=== PATIENT | male | born 1935 | race Caucasian/White ===

== ENCOUNTER → 2017-12-04 | Outpatient (CLI) | payer MEDICARE ==
[~2017-12-04] MED LIST: ACET-1966 PO; ACET-2146 PO; AMLO-96 PO; BENECAR; BUPR-124 PO; CIP500 PO; DIA2 PO; DICL100G39 TOP; DULO20CA3 PO; DULO30CA35 PO; FINA5TAB67 PO; IBUP200C74 PO; IRBE1TAB PO; IRBE300T6 PO; MEC25 PO; METO25TA23 PO; OND4 PO; SAW160CA24 PO; SAW160CA26 PO; TAMS0.4C70 PO; VITAMINS; [UNRECOGNIZED DRUG - OTHER]
--- NOTE | 2017-12-04 14:12 | EKG ---
[facility] PATIENT NAME: ALFONZO HUANG : [id number] MR: [id number] V: [id number] EXAM DATE: ORDERING PHYSICIAN: LIS MENDOZA TECHNOLOGIST: NEGRO Test Reason : TACHYCARDIA Blood Pressure : / mmHG Vent. Rate : 099 BPM Atrial Rate : 099 BPM P-R Int : 126 ms QRS Dur : 082 ms QT Int : 322 ms P-R-T Axes : 055 -06 008 degrees QTc Int : 413 ms Sinus rhythm with occasional premature ventricular complexes Otherwise normal ECG No previous ECGs available Referred By: KELLY Confirmed By:
== END ==
LOC: RESP 09:13
PROVIDERS: ATTEND Family Medicine
DX: Z02.9 Encounter for administrative examinations, unspecified (principal)

== ENCOUNTER → 2017-12-28 | Outpatient (CLI) | payer MEDICARE | LOC: RESP 20:44 | PROVIDERS: ATTEND Family Medicine | DX: G47.33 Obstructive sleep apnea (adult) (pediatric) (principal); G47.61 Periodic limb movement disorder; G47.36 Sleep related hypoventilation in conditions classified elsewhere; E66.3 Overweight ==

== ENCOUNTER → 2018-01-25 | Outpatient (CLI) | payer MEDICARE | LOC: RESP 20:40 | PROVIDERS: ATTEND Family Medicine | DX: G47.33 Obstructive sleep apnea (adult) (pediatric) (principal); G47.61 Periodic limb movement disorder; G47.36 Sleep related hypoventilation in conditions classified elsewhere; E66.9 Obesity, unspecified ==

== ENCOUNTER → 2018-02-28 | Outpatient (CLI) | payer MEDICARE ==
[~2018-02-28] MED LIST changes: +FAMO-67 PO
[2018-02-28 11:12] LABS: PLATELET COUNT, AUTOMATED 210 K/uL (150-450)
== END ==
LOC: LAB 10:39
PROVIDERS: ATTEND Family Medicine
DX: I10 Essential (primary) hypertension (principal); E16.2 Hypoglycemia, unspecified
CPT/HCPCS: 36415; 82040; 82247; 82310; 82374; 82435; 82565; 82947; 83036; 84075; 84132; 84155; 84295; 84450; 84460; 84520; 85025

== ENCOUNTER 2018-04-11 09:45 | Outpatient (RCR) | payer MEDICARE ==
--- NOTE | 2018-03-04 09:51 | PT INITIAL EVALUATION ---
MEDICAL DIAGNOSIS: arthritis of knee, falls frequently TREATMENT DIAGNOSIS: same DATE OF ONSET: 03/03/15 SUBJECTIVE: Mehran Zaragoza presents to physical therapy with complaints of B knee pain due to arthritis and difficulty with balance that started approximately 3 years ago. He reports that the B knee pain has gotten worse recently in the last 1.5 months. Furthermore, he reports that he received an injection approximately 1.5 months with minimal results. He reports that his L knee pain (rates it to be 3-4/10) is worse than his R knee pain (rates it to be 2-3/10). He also reports that he has occasional dizziness with spinning that results is balance worsening. He also reports that he has lazy L eye and if he closes his R eye his balance worsens. He reports that the B knees become worse with squatting and B knee flexion and feels better with knee extension, Voltaren cream, and Tylenol. He reports that he feels like his B knees are the main problem followed by his balance and walking. He also reports that he has difficulties with going up and down curbs, inclines, and steps. Pain location is R knee: superior lateral, medial: inferior/superior, L knee: medial/lateral and described as achy. REHAB PROBLEM LIST: Increased Pain Decreased ROM Decreased Strength Decreased Endurance Decreased Balance Decreased Function Decreased Mobility Decreased Gait PREVIOUS MEDICAL HISTORY: See EMR OCCUPATION: Retired OBJECTIVE: Posture: He demonstrates B rounded shoulders, increased thoracic kyphosis, and decreased lumbar lordosis. ROM: B hip flexion, extension, abduction, adduction, B knee flexion, extension, and B ankle PF and DF: WFL's; however, he demonstrated minimal reduction of hamstring flexibility. Strength: B hip flexion, extension, abduction: 4/5 with pain. B knee extension and flexion: 5/5. B hip adduction: 5/5. B ankle DF and PF: 4/5. Palpation: TTP: R knee: superior lateral joint line, medial: inferior/superior joint lines, and posterior medial hamstring muscle, L knee: medial/lateral joint lines, and posterior lateral hamstring muscle Special Tests: Knee FOTO: 56% impairment. Repeated flexion: increased B knee pain during the test and worse following the test. Repeated extension: increased B knee pain during the test and better following the test. Mobility: Independent Gait: He demonstrated decreased velocity, decreased B step lengths, increased base of support, decreased B feet clearance, decreased B pelvic mobility, and decreased B UE movement. Balance: Demonstrated difficulties with the conditions that required him to have a decreased base of support and the vestibular system isolated with eyes closed and on complaint surface. Other Objective Findings: ASSESSMENT: Mehran will benefit from skilled physical therapy to address the listed impairments to improve function and QOL. Short Term Goals 6 weeks: Pt will improve FOTO knee functional status from baseline to less than 19% to improve function and QOL. 6 weeks: Pt will demonstrate improvements with B knee flexion and extension ROM along with decreased/abolished B knee constant pain especially with ambulation and functional based activities to improve function and QOL. 6 weeks: Pt will demonstrate improvements with core and B LE strength from baseline to greater than 4+/5 to improve function and QOL. Patient's Goals to improve knee pain along with balance PLAN: Patient to be seen for Manual Therapy/STM/MET Strengthening/condition Ice/Heat Range of Motion Spinal Stabilization Work Hardening/Cond Stretching Iontophoresis Neuromuscular Re-ed Closed Chain Program Posture/Body mechanics Gait Trg/Balance Trg Home Exercise Program Therapeutic Activities 2x/Week for 6 Weeks If you have any questions, comments, or concerns about this report or plan, please contact me at . Thank you, Stanislaw Jules, PT, DPT MTDD
--- NOTE | 2018-04-10 16:09 | PT PLAN OF CARE ---
Physician: iGancarlo Marroquin MD Patient is being seen: 2-3x/week Therapist: Stanislaw Jules, PT, DPT Medical Diagnosis: R shoulder pain, s/p falls, poor balance Treatment Diagnosis: same, L shoulder pain Date of Onset: 03/03/15 Date of Initial Evaluation: 03/03/18 Date patient was last seen: 03/28/18 Number of treatments: 5 Number of cancellations/No shows: INTERVENTIONS: Manual Therapy/STM/MET Strengthening/condition Ice/Heat Range of Motion Spinal Stabilization Work Hardening/Cond Stretching Iontophoresis Neuromuscular Re-ed Closed Chain Program Posture/Body mechanics Gait Trg/Balance Trg Home Exercise Program Therapeutic Activities GOALS: 2 weeks: Pt will improve AAROM of B shoulder from baseline to full AAROM to improve function and QOL. 4 weeks: Pt will improve AROM of B shoulder from baseline to full AROM to improve function and QOL. 6 weeks: Pt will demonstrate improvements with B UE strength (RTC, periscapular' s) from baseline to 4+/5 or greater to improve function and QOL. PATIENT'S GOAL: to B shoulder range of motion, reduce pain, and improve balance to reduce the number of his falls Status of Patient's Goals: Not Met Patient Compliance: Good Prognosis: Good Reasons for continuing therapy: This is a re-examination for Mehran Corleyno. He reports that he has had multiple falls over the past two weeks. He reports that he fell over a rock in [place] injuring his R shoulder. Furthermore, he reports that he fell 04/08/18 injuring his L shoulder. He rates his R shoulder pain to be 8/10. He rates his L shoulder pain to be 8/10. He also reports that he had an injection on 04/07/18 with minimal relief since he fell the next day. He also reports that his B elbows and hands are sore from the fall yesterday and rates his soreness to be 5-7/10. He reports that his balance is extremely poor if he closes his eyes. He reports that he has started to ambulate with an increased base of support to reduce risk of falls. He reports that he can no longer utilize his cane because it causes increased pain in his R shoulder while utilizing the cane. He reports that he would like to improve ROM of B shoulder, improve ambulation, and improve strength in his shoulder. Lastly, he reports that he needs to reduce the number of falls since he cannot afford any more injuries. We will work on improve B shoulder ROM, increase RTC and periscapular strength, reduce pain, improve balance strategies, and improve strength to return to prior level of function. Posture: He demonstrates B rounded shoulders, increased thoracic kyphosis, and decreased lumbar lordosis. ROM: PROM: B shoulder flexion, 175 deg, abduction: 175 degrees, ER: 85 deg, IR: 90 deg. AROM of B shoulder flexion: 90 deg, abduction: 110 degrees, ER: 30 deg, IR: 80 deg. He demonstrated pain with AROM in all directions Strength: B shoulder flexion: weak and painful. shoulder abduction: strong and painful. ER: weak and painful. IR: strong and painful Palpation: TTP: R shoulder: insertional points of infraspinatus and teres minor with radiating pain down the mid deltoid. L shoulder: insertional points of supraspinatus and LHB with radiating pain down the mid deltoid region. Special Tests: QUICKDASH: 56% impairment. + impingement (B shoulders) sheela figueroa hawkins-kennedy. (-) anterior/posterior shift (B shoulders), (-) load and shift (B shoulders), (-) B shoulder full RTC tear, (-) 90-90 dislocation test (B shoulders) Mobility: Independent Balance: Firm surface, normal base of support, eyes opened: 60 seconds, Firm surface, decreased base of support, eyes opened: 60 seconds. Firm surface, normal base of support, eyes closed: 60 seconds. Firm surface, decreased base of support, eyes closed: 60 seconds. Firm surface, tandem stance R/L or L/R, eyes opened: 2 seconds. Compliant surface, normal base of support, eyes opened: 60 sec. Compliant surface, decreased base of support, eyes opened: 60 seconds. Compliant surface, normal base of support, eyes closed: 6 sec. Compliant surface , decreased base of support, eyes closed: 3 seconds. If you have any questions, please contact me at [phone]. Thank you, Stanislaw Jules, PT, DPT GAILD
[~2018-04-11 09:45] MED LIST changes: +MIRT7.5T2 PO
== END 2018-04-11 18:00 | disposition home or self-care (01) ==
LOC: PT 09:45
PROVIDERS: ATTEND Family Medicine
DX: M17.0 Bilateral primary osteoarthritis of knee (principal); R29.6 Repeated falls; M25.561 Pain in right knee; M25.562 Pain in left knee; R42 Dizziness and giddiness; H53.002 Unspecified amblyopia, left eye; M25.511 Pain in right shoulder; M25.512 Pain in left shoulder
CPT/HCPCS: 97161; 97162

== ENCOUNTER 2018-04-12 15:36 | Emergency (ER) | payer MEDICARE ==
--- NOTE | 2018-04-12 16:18 | RADIOLOGY IMAGING REPORT ---
FACILITY: [facility] PATIENT NAME: Jacek Oneill : 12/02/1967 MR: [id number] V: [id number] EXAM DATE: ORDERING PHYSICIAN: MIKE CANTRELL TECHNOLOGIST: Location: [facility] [place] Patient: Jacek Oneill : 12/02/1967 Visit/Account:[id number] Date of Sevice: 04/12/2018 CHEST SINGLE AP Indication: Code blue. Comparison: None available Findings: Cartilage is mildly enlarged. Mediastinal silhouette and pulmonary vessels within normal limits. 1 lungs are decreased bilaterally. No focal consolidation, effusion or appreciable pneumothorax. Endotracheal tubes in place and appears to be in good position approximately 3 cm above the axel. No discrete nodule. Upper abdomen is unremarkable. No acute bony abnormality. IMPRESSION: 1. ET tube appears to be in good position. No indication of pneumothorax or focal infiltrate. Mildly enlarged cardiac silhouette. Report Dictated By: Nigel Jacobo at 04/12/2018 4:11 PM Report E-Signed By: Nigel Jacobo at 04/12/2018 4:14 PM WSN:[id number]
[2018-04-12] MEDS ORDERED: NS(*) 0.9% 1000 ML BAG 1,000 ML IV ONE (16:23)
[2018-04-12] MEDS ORDERED: ASPIRIN 81 MG CHEW PO ONE (16:25)
[2018-04-12] MEDS ORDERED: LEVOPHED KIT (*) 1 IVSOL 1 KIT in D5W(*) 250 ML BAG 250 ML IVPB ONE (16:25)
[2018-04-12 16:32] LABS: PLATELET COUNT, AUTOMATED 154 K/uL (150-450)
[2018-04-12 17:03] LABS: INR 1.47
--- NOTE | 2018-04-12 17:13 | ER Report ---
History and Physical Time Seen By MD: 15:39 HPI/ROS CHIEF COMPLAINT: Cardiac arrest (Mehran Zaragoza) HISTORY OF PRESENT ILLNESS: Patient is an 82-year-old male here in cardiac arrest. Patient reportedly was found down at home by his with approximately downtime of 5 minutes with a subsequent 4-5 minute period of time before CPR was initiated. EMS responded to the scene and continued CPR and found the patient to be in V. fib, delivering a single shock with subsequent asystole. Patient was initiated on several rounds of epinephrine upon arrival with continued CPR until ROSC was achieved. The scene nursing note for specific timeline. Patient subsequently lost pulses and CPR was initiated again with return of ROSC. REVIEW OF SYSTEMS: Unable to obtain due to mental status Constitutional Vital Sign - Last 24 Hours 04/12/18 15:37 FiO2 100.0 Physical Exam General Appearance: Unconscious, non responsive, Intubated Eyes: Pupils 3 mm and non reactive ENT, Mouth:ETT in place Respiratory: There are no retractions, lungs are clear to auscultation. Cardiovascular: BERNIE in place Gastrointestinal: Abdomen is soft and non tender, no masses, bowel sounds normal. Neurological: Non responsive, not moving extremities spontaneously, pupils non reactive Skin: Mottled mid abdomen, dusky Musculoskeletal: Neck is supple . DIFFERENTIAL DIAGNOSIS: After history and physical exam differential diagnosis was considered for PE, MT, obstructive shock, hemorrhage Medical Decision Making Data Points Result Diagram: 04/12/18 1540 04/12/18 1540 Laboratory Hematology Test 04/12/18 15:40 04/12/18 16:40 Red Blood Count 4.87 M/uL (4.00-5.60) Mean Corpuscular Volume 98.7 fL (80.0-96.0) Mean Corpuscular Hemoglobin 31.3 pg (26.0-33.0) Mean Corpuscular Hemoglobin Concent 31.7 g/dL (32.0-36.0) Red Cell Distribution Width 15.8 % (11.5-14.5) Mean Platelet Volume 9.7 fL (7.2-11.1) Neutrophils (%) (Auto) 29.2 % (39.4-72.5) Lymphocytes (%) (Auto) 60.5 % (17.6-49.6) Monocytes (%) (Auto) 7.2 % (4.1-12.4) Eosinophils (%) (Auto) 1.9 % (0.4-6.7) Basophils (%) (Auto) 1.2 % (0.3-1.4) Nucleated RBC Relative Count (auto) 0.3 /100WBC Neutrophils # (Auto) 3.0 K/uL (2.0-7.4) Lymphocytes # (Auto) 6.2 K/uL (1.3-3.6) Monocytes # (Auto) 0.7 K/uL (0.3-1.0) Eosinophils # (Auto) 0.2 K/uL (0.0-0.5) Basophils # (Auto) 0.1 K/uL (0.0-0.1) Nucleated RBC Absolute Count (auto) 0.03 K/uL Peripheral Blood Smear Yes Y/N Prothrombin Time 18.1 seconds (12.0-14.4) Prothromb Time International Ratio 1.47 Activated Partial Thromboplast Time 65 seconds (23-35) Sodium Level 144 mmol/L (137-145) Potassium Level 3.1 mmol/L (3.5-5.0) Chloride Level 101 mmol/L (98-107) Carbon Dioxide Level 15 mmol/L (22-30) Blood Urea Nitrogen 15 mg/dl (9-21) Creatinine 1.20 mg/dl (0.66-1.25) Glomerular Filtration Rate Calc > 60.0 Random Glucose 304 mg/dl (75-110) Calcium Level 9.5 mg/dl (8.4-10.2) Total Bilirubin 0.5 mg/dl (0.2-1.3) Aspartate Amino Transf (AST/SGOT) 934 U/L (0-35) Alanine Aminotransferase (ALT/SGPT) 783 U/L (0-56) Alkaline Phosphatase 69 U/L (0-126) Troponin I 0.019 ng/ml B-Type Natriuretic Peptide 80 pg/ml (0-100) Total Protein 6.0 gm/dl (6.3-8.2) Albumin 3.5 g/dl (3.5-5.0) Blood Gas Puncture Site Left radial Blood Gas Patient Temperature 35.9 DEGREES Arterial Blood pH 6.75 (7.35-7.45) Arterial Blood Partial Pressure CO2 58 mmHg (32-37) Arterial Blood Partial Pressure O2 134 mmHg (60-80) Arterial Blood HCO3 8 mmol/L (20-26) Arterial Blood Oxygen Saturation 94 % (92-100) Arterial Blood Base Excess -27.0 mmol/L Pito Test Nt avail Oxygen Liters/Minute 100% Chemistry Test 04/12/18 15:40 04/12/18 16:40 White Blood Count 10.2 k/uL (4.5-11.0) Red Blood Count 4.87 M/uL (4.00-5.60) Hemoglobin 15.2 g/dL (14.0-18.0) Hematocrit 48.1 % (42.0-52.0) Mean Corpuscular Volume 98.7 fL (80.0-96.0) Mean Corpuscular Hemoglobin 31.3 pg (26.0-33.0) Mean Corpuscular Hemoglobin Concent 31.7 g/dL (32.0-36.0) Red Cell Distribution Width 15.8 % (11.5-14.5) Platelet Count 154 K/uL (150-450) Mean Platelet Volume 9.7 fL (7.2-11.1) Neutrophils (%) (Auto) 29.2 % (39.4-72.5) Lymphocytes (%) (Auto) 60.5 % (17.6-49.6) Monocytes (%) (Auto) 7.2 % (4.1-12.4) Eosinophils (%) (Auto) 1.9 % (0.4-6.7) Basophils (%) (Auto) 1.2 % (0.3-1.4) Nucleated RBC Relative Count (auto) 0.3 /100WBC Neutrophils # (Auto) 3.0 K/uL (2.0-7.4) Lymphocytes # (Auto) 6.2 K/uL (1.3-3.6) Monocytes # (Auto) 0.7 K/uL (0.3-1.0) Eosinophils # (Auto) 0.2 K/uL (0.0-0.5) Basophils # (Auto) 0.1 K/uL (0.0-0.1) Nucleated RBC Absolute Count (auto) 0.03 K/uL Peripheral Blood Smear Yes Y/N Prothrombin Time 18.1 seconds (12.0-14.4) Prothromb Time International Ratio 1.47 Activated Partial Thromboplast Time 65 seconds (23-35) Glomerular Filtration Rate Calc > 60.0 Calcium Level 9.5 mg/dl (8.4-10.2) Total Bilirubin 0.5 mg/dl (0.2-1.3) Aspartate Amino Transf (AST/SGOT) 934 U/L (0-35) Alanine Aminotransferase (ALT/SGPT) 783 U/L (0-56) Alkaline Phosphatase 69 U/L (0-126) Troponin I 0.019 ng/ml B-Type Natriuretic Peptide 80 pg/ml (0-100) Total Protein 6.0 gm/dl (6.3-8.2) Albumin 3.5 g/dl (3.5-5.0) Blood Gas Puncture Site Left radial Blood Gas Patient Temperature 35.9 DEGREES Arterial Blood pH 6.75 (7.35-7.45) Arterial Blood Partial Pressure CO2 58 mmHg (32-37) Arterial Blood Partial Pressure O2 134 mmHg (60-80) Arterial Blood HCO3 8 mmol/L (20-26) Arterial Blood Oxygen Saturation 94 % (92-100) Arterial Blood Base Excess -27.0 mmol/L Pito Test Nt avail Oxygen Liters/Minute 100% Coagulation Test 04/12/18 15:40 Prothrombin Time 18.1 seconds Prothromb Time International Ratio 1.47 Activated Partial Thromboplast Time 65 seconds EKG/Imaging EKG Interpretation 16:18- Sinus tachycardia, rate 134 with PVCs Monitor Interpretation: Sinus Tachycardia ED Course/Re-evaluation Clinical Indication for ER IV: Hydration, Hypotention, IV Access ED Course Patient is an 82-year-old male here in cardiac arrest. Patient reportedly was found down at home by his with approximately downtime of 5 minutes with a subsequent 4-5 minute period of time before CPR was initiated. EMS responded to the scene and continued CPR and found the patient to be in V. fib, delivering a single shock with subsequent asystole. Patient was initiated on several rounds of epinephrine upon arrival with continued CPR until ROSC was achieved. The scene nursing note for specific timeline. Patient subsequently lost pulses and CPR was initiated again with return of ROSC. Patient's was updated regarding patient's status while she was in the waiting room. She was brought to bedside. I discussed the patient's current condition with the patient's son over the phone while he was in route to the hospital and he voiced understanding. According to the patient's son, the patient did not want aggressive measures such as being on a respirator. She was initiated on norepinephrine infusion to titrate mean arterial pressure greater than 60. Chest x-ray confirmed endotracheal tube placement. I discussed the patient again with the patient and son Yehuda Zaragoza ([phone]) and updated him regarding the patient's current status. The patient currently maintains pulses pressor support and on the ventilator, however does not wish to have the patient transferred to a tertiary care center. I discussed the patient with Dr. López, the internal medicine hospitalist to make him aware of the patient's presence in the emergency department and possible transfer to the floor. Dr. Duran accepted the patient to the floor for further care/ comfort care. Decision to Disposition Date: April 12, 2018 Decision to Disposition Time: 17:55 Depart Departure Latest Vital Signs Vital Signs Date Time Temp Pulse Resp B/P (MAP) Pulse Ox O2 Delivery O2 Flow Rate FiO2 04/12/18 15:37 100.0 Impression: Primary Impression: Cardiac arrest Condition: Critical Disposition: Admitted from ER JESSICA GANN DO April 12, 2018 17:13
--- NOTE | 2018-04-12 17:35 | EKG ---
FACILITY: [facility] - [place] PATIENT NAME: MOHIT BAKER : [id number] MR: [id number] V: [id number] EXAM DATE: ORDERING PHYSICIAN: JESSICA GANN TECHNOLOGIST: ERIC Morgan Reason : CODE BLUE Blood Pressure : / mmHG Vent. Rate : 148 BPM Atrial Rate : 148 BPM P-R Int : 136 ms QRS Dur : 134 ms QT Int : 328 ms P-R-T Axes : 000 240 008 degrees QTc Int : 514 ms Wide complex tachycardia Appears to be RBBB morphology Abnormal ECG No previous ECGs available Confirmed by REGI RODRIGUEZ ([id number]) on 04/14/2018 11:09:37 AM Referred By: Confirmed By:REGI RODRIGUEZ
[2018-04-12 19:15] VITALS: BP 62/38
[2018-04-13] MEDS ORDERED: LEVOPHED KIT (*) 1 IVSOL 0 KIT IV ONE (01:41)
--- NOTE | 2018-04-13 17:02 | EKG ---
FACILITY: [facility] - [place] PATIENT NAME: ALFONZO HUANG : [id number] MR: [id number] V: [id number] EXAM DATE: ORDERING PHYSICIAN: JESSICA GANN TECHNOLOGIST: ERCI Morgan Reason : CODE BLUE Blood Pressure : / mmHG Vent. Rate : 133 BPM Atrial Rate : 133 BPM P-R Int : 076 ms QRS Dur : 082 ms QT Int : 368 ms P-R-T Axes : 070 -41 037 degrees QTc Int : 547 ms Appears to be sinus tachycardia with frequent premature ventricular complexes Left axis deviation Nonspecific ST and T wave abnormality Abnormal ECG No previous ECGs available Confirmed by REGI RODRIGUEZ ([id number] on 04/14/2018 11:11:54 AM Referred By: Confirmed By:REGI RODRIGUEZ
== END 2018-04-12 19:45 | disposition other institution (70) ==
LOC: MERGE 15:37 → EDBD 15:37 → ER 15:37 → ICU 18:05 → UNDOADMIN 18:05 → ER 19:45
DX: I46.9 Cardiac arrest, cause unspecified (principal); R94.31 Abnormal electrocardiogram [ECG] [EKG]
CPT/HCPCS: 36600; 71045; 82803; 83880; 84484; 85025; 85610; 85730; 92950; 93005; 94002; 94770; 99285; C1758; J0171; J2704; 82040; 82247; 82310; 82374; 82435; 82565; 82947; 84075; 84132; 84155; 84295; 84450; 84460; 84520

== ENCOUNTER → 2018-04-12 | Outpatient (CLI) | payer MEDICARE | LOC: AMB 15:10 | PROVIDERS: ATTEND Nurse Practitioner | DX: I46.9 Cardiac arrest, cause unspecified (principal) | CPT/HCPCS: A0425; A0433 ==